=== PATIENT | male | born 1945 | race Caucasian/White ===

== ENCOUNTER 2017-10-19 08:07 | Emergency (ER) | payer MEDICARE, OTHER ==
--- NOTE | 2017-10-19 08:37 | CT ---
CT HEAD WITHOUT CONTRAST: Date: 10/19/17 Multiple axial tomograms obtained through the head without IV enhancement. HISTORY: Stroke protocol. Mental status change. No comparison. FINDINGS: There is an acute hemorrhage in the posterior fossa located in the left cerebellar hemisphere with so me extension into the midline. Dimensions of this hematoma are measured at 3.7 cm width x up to 2.3 c m AP dimension. There is mild surrounding edema. Intraventricular extension is seen with blood in the fourth ventricle and third ventricle, and a tiny amount of blood in the horns of the lateral ventric les. Ventricular size is upper normal. No evidence of acute cerebral infarct. Sinuses and mastoids are nell ar. IMPRESSION: Acute posterior fossa hematoma with intraventricular extension. Findings relayed to Dr. Parra. CODE CR. POS: [facility]
[2017-10-19 08:45] LABS: #Basophils 0.1 thou/uL (0.0-0.2); #Eosinphils 0.1 thou/uL (0.0-0.7); #Lymphocytes 1.6 thou/uL (1.20-3.40); #Monocytes 0.8 thou/uL (0.11-0.59); #Neutrophils 12.1 thou/uL (1.40-6.50); %Basophils 0.4 % (0.0-1.0); %Eosinophils 0.5 % (0.0-10.0); %Lymphocytes 10.7 % (21.0-51.0); %Monocytes 5.5 % (0.0-10.0); Hemoglobin 15.3 g/dL (14.0-18.0); Mean Corpuscular HGB CONC 35.5 g/dL (32.0-36.0); Mean Corpuscular Volume 93.1 fl (80.0-94.0); Platelet Count 187 thou/uL (130-400); RBC Distribution Width 10.4 % (11.5-14.5); Red Blood Cell (RBC) Count 4.63 mill/uL (4.70-6.10); White Blood Cell (WBC) Count 14.6 thou/uL (4.8-10.8)
[2017-10-19 08:51] LABS: INR-International Normal Ratio 1.1; PTT 29.4 SEC (22.9-36.1); Prothrombin Time 14.4 SEC (12.0-14.7)
[2017-10-19] MEDS ORDERED: Ondansetron HCl/PF 4 MG/2 ML Vial ONE (08:59)
[2017-10-19 09:02] LABS: ALT (SGPT) 24 U/L (8-55); AST (SGOT) 22 U/L (5-34); Albumin 4.1 g/dL (3.4-4.8); Alkaline Phosphatase 50 U/L (40-150); Anion Gap 18 mmol/L (10-20); BUN (Urea Nitrogen) 14 mg/dL (8.4-25.7); Bilirubin, Total 1.1 mg/dL (0.2-1.2); Calc. Creatinine Clearance 0 mL/min (70-130); Calcium 9.2 mg/dL (7.8-10.44); Carbon Dioxide 26 mmol/L (23-31); Chloride 101 mmol/L (98-107); Estimated GFR-MDRD 77; Globulin 2.8 g/dL (2.4-3.5); Glucose 176 mg/dL (83-110); Potassium 3.3 mmol/L (3.5-5.1); Protein, Total 6.9 g/dL (5.8-8.1); Sodium 142 mmol/L (136-145)
[2017-10-19 09:04] LABS: CKMB 2.4 ng/mL (0-6.6); Troponin I Less than 0.010 ng/mL (< 0.028)
--- NOTE | 2017-10-19 09:12 | RAD ---
PORTABLE CHEST: Date: 10/19/17 HISTORY: Mental status change. FINDINGS: Lungs appear clear. Heart and mediastinum unremarkable. No evidence of mass or congestion. IMPRESSION: No acute abnormality. POS: [facility]
== END 2017-10-19 10:30 | disposition short-term general hospital (02) ==
LOC: MADERS 08:07
DX: I62.9 Nontraumatic intracranial hemorrhage, unspecified (principal); G21.11 Neuroleptic induced parkinsonism; Z79.899 Other long term (current) drug therapy
CPT/HCPCS: 36415; 36416; 70450; 71045; 80053; 82553; 83880; 84484; 85025; 85610; 85730; 93005; 94760; 96374; J2405